=== PATIENT | female | born 1965 | race Caucasian/White ===

== ENCOUNTER 2021-08-06 18:54 | Emergency (ER) | payer BC ==
[~2021-08-06] VITALS: Ht 172.7 cm; Wt 109.0 kg
[2021-08-06] MEDS ORDERED: HYDROcodone/APAP 5/325MG 1 TAB TABLET PO ONE ×2 (19:45→20:45)
[2021-08-06] MEDS ORDERED: DIPH,PERTUSS(ACELL),TET VAC/PF 0.5 ML SYRINGE. VAX IM ONE (19:45)
[2021-08-06] MEDS ORDERED: ONDANSETRON ODT 4 MG TAB.RAPDIS. PO ONE ×2 (19:45→20:45)
--- NOTE | 2021-08-06 20:11 | RAD ---
Exam: CT maxillofacial without contrast INDICATION: Blunt trauma to nasal bone TECHNIQUE: Sequential axial images through the face obtained without IV contrast. Sagittal and fraga l reformatted images were reconstructed from the axial data and reviewed. Exposure: One or more of the following in the visualized dose reduction techniques were utilized for this examination: 1. Automated exposure control 2. Adjustment of the MA and/or KV according to patient size 3. Use of iterative of reconstructive technique Comparisons: None FINDINGS: Visualized intracranial structures are unremarkable. Globes and intraorbital contents are normal. Mild bilateral nasal bone fractures are noted. Small amount of layering fluid noted within the maxill kacie sinuses bilaterally. No significant periodontal disease is noted. IMPRESSION: Small bilateral nasal bone fractures. Hemorrhagic products noted within the nasal cavity and small am ount layering within the maxillary sinuses bilaterally. Electronically signed by: Camelia Eng MD (08/06/2021 8:08 PM) [facility]
--- NOTE | 2021-08-06 20:15 | EKG ---
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
[2021-08-06 20:40] VITALS: BP 160/69
--- NOTE | 2021-08-06 20:50 | RAD ---
Exam: Right knee 3 views INDICATION: Fall TECHNIQUE: Frontal, lateral oblique views of the right knee Comparisons: None FINDINGS: Bone mineralization is normal. No acute or healed fractures. Soft tissues are unremarkable. There is mild tricompartmental osteoarthritic change. IMPRESSION: Mild tricompartmental osteoarthritic change without underlying osseous abnormality identified. Electronically signed by: Camelia Eng MD (08/06/2021 8:47 PM) [facility]
--- NOTE | 2021-08-06 21:45 | PHYS DOC ---
Past Medical History Additional Past Medical Histor: tachycardia Past Surgical History: Appendectomy, Cholecystectomy, Lumbar Laminectomy, Other Additional Past Surgical Histo: bilat knee repair Smoking Status: Never Smoker Alcohol Use: None General Adult EDM: Chief Complaint: SYNCOPE HPI: HPI: Patient is a 55-year-old female presents to the emergency department complaining of a stumble and fall just prior to arrival to the emergency department. Patient reports that she became slightly dizzy and then stumbled over something and fell forward striking her right knee and face onto the concrete. Patient denies loss of consciousness. Patient denies feeling chest palpitations, chest pains, shortness of breath. Patient reports she has been seeing a conductor/brakeman for heart palpitations however did not feel heart palpitations during this event. Patient denies visual disturbances, denies other syncopal episodes or near syncopal episodes. Patient reports her last tetanus immunization was greater than 5 years ago. Patient denies headaches, denies lightheadedness, denies numbness or tingling to her extremities. Denies other physical complaints or physical concerns. Review of Systems: Review of Systems: 14 body systems of review of systems have been reviewed. See HPI for pertinent positives and negative responses, otherwise all other systems are negative, nonpertinent or noncontributory. Constitutional: Negative except as outlined in HPI above. Skin: Negative except as outlined in HPI above. Eyes: Negative except as outlined in HPI above. HENT: Negative except as outlined in HPI above. Respiratory: Negative except as outlined in HPI above. Cardiovascular: Negative except as outlined in HPI above. GI: Negative except as outlined in HPI above. : Negative except as outlined in HPI above. Musculoskeletal: Negative except as outlined in HPI above. Integument: Negative except as outlined in HPI above. Neurologic: Negative except as outlined in HPI above. Endocrine: Negative except as outlined in HPI above. Lymphatic: Negative except as outlined in HPI above. Psychiatric: Negative except as outlined in HPI above. Heart Score: C/O Chest Pain: No Risk Factors: Risk Factors: DM, Current or recent (<one month) smoker, HTN, HLP, family history of CAD, obesity. Risk Scores: Score 0 - 3: 2.5% MACE over next 6 weeks - Discharge Home Score 4 - 6: 20.3% MACE over next 6 weeks - Admit for Clinical Observation Score 7 - 10: 72.7% MACE over next 6 weeks - Early Invasive Strategies Current Medications: Current Medications Medications (Trade) Dose Ordered Sig/Bartolome Start Time Stop Time Status Last Admin Dose Admin Acetaminophen/ Hydrocodone Bitart (Lortab 5/325) 1 tab 1X ONCE 08/06/21 20:45 08/06/21 20:46 DC 08/06/21 20:44 1 TAB Diphtheria/ Tetanus/Acell Pertussis (ADACEL TDap SYRINGE) 0.5 ml ONCE ONCE 08/06/21 19:45 08/06/21 19:46 DC 08/06/21 19:20 0.5 ML Ondansetron HCl (Zofran Odt) 4 mg 1X ONCE 08/06/21 20:45 08/06/21 20:46 DC 08/06/21 20:44 4 MG Allergies: Allergies: Allergies Coded Allergies Type Severity Reaction Last Updated Verified codeine Allergy Intermediate n/v 08/06/21 Yes Penicillins Allergy Mild hives 08/06/21 Yes Physical Exam: PE: Constitutional: Well developed, well nourished, no acute distress, non-toxic appearance. 55-year-old female in no apparent distress. HENT: Normocephalic, abrasions and superficial lacerations to bridge of nose. No other facial injury appreciated, patient scant oozing blood from bilateral nasal turbinates, bilateral TMs within normal limits, intact, no postnasal bleeding or drip appreciated. No alfonso's sign, no raccoon eyes appreciated. Eyes: Conjunctiva normal, no discharge. Satisfactory 6 cardinal eye movements Neck: Normal range of motion, no stridor. No midline spinal tenderness Cardiovascular: No cyanosis appreciated, distal cap refill less than 2 seconds. Lungs & Thorax: Patient is in no respiratory distress, no audible adventitious lung sounds appreciated. Abdomen: Nontender, no abnormalities noted. Skin: Warm, dry, no erythema, no rash. See HENT note for focused skin examination. Back: No tenderness, no deformities. Extremities: No tenderness, no cyanosis, no clubbing, ROM intact, no edema. Except for right knee, pain to palpation of anterior patellar aspect, no bruising, no swelling, no crepitus appreciated, limited passive range of motion related to pain. Distal cap refill less than 2 seconds, 2+ dorsalis pedis pulse. No edema appreciated. Neurologic: Alert and oriented X 3, normal motor function, normal sensory function, no focal deficits noted. Psychologic: Affect normal, judgement normal, mood normal. Current Patient Data: Vital Signs: Vital Signs Date Time Temp Pulse Resp B/P (MAP) Pulse Ox O2 Delivery O2 Flow Rate FiO2 08/06/21 20:44 20 98 Room Air 08/06/21 19:01 98.0 77 144/70 (94) 98.0 EKG: EKG: EKG performed at 1925 by ED nursing staff shows a normal sinus rhythm with a heart rate of 69 bpm, KS interval 0.140, QTc interval 0.422, no acute STEMI, no ACS, no acute ischemia appreciated however there is a T wave inversion with a Q- wave in lead III. And a T wave inversion in aVF otherwise normal EKG. EKG interpreted by ED attending physician Dr. Morales. Radiology/Procedures: Radiology/Procedures: PROCEDURE: KNEE RIGHT 3V Exam: Right knee 3 views INDICATION: Fall TECHNIQUE: Frontal, lateral oblique views of the right knee Comparisons: None FINDINGS: Bone mineralization is normal. No acute or healed fractures. Soft tissues are u nremarkable. There is mild tricompartmental osteoarthritic change. IMPRESSION: Mild tricompartmental osteoarthritic change without underlying osseous abnormality identified. Electronically signed by: Camelia Eng MD (08/06/2021 8:47 PM) [facility] PROC[facility]: CT MAXILLOFACIAL WO CONTRAST Exam: CT maxillofacial without contrast INDICATION: Blunt trauma to nasal bone TECHNIQUE: Sequential axial images through the face obtained without IV contrast. Sagittal and coronal reformatted images were reconstructed from the axial data and reviewed. Exposure: One or more of the following in the visualized dose reduction techniques were utilized for this examination: 1. Automated exposure control 2. Adjustment of the MA and/or KV according to patient size 3. Use of iterative of reconstructive technique Comparisons: None FINDINGS: Visualized intracranial structures are unremarkable. Globes and intraorbital contents are normal. Mild bilateral nasal bone fractures are noted. Small amount of layering fluid noted within the maxillary sinuses bilaterally. No significant periodontal disease is noted. IMPRESSION: Small bilateral nasal bone fractures. Hemorrhagic products noted within the nasal cavity and small amount layering within the maxillary sinuses bilaterally. Electronically signed by: Camelia Eng MD (08/06/2021 8:08 PM) [facility] Course & Med Decision Making: Course & Med Decision Making Pertinent Labs and Imaging studies reviewed. (See chart for details) 55-year-old female, vital signs reviewed, presents emergency department concerning stumble and fall after becoming slightly dizzy while walking today. Patient's physical presentation is consistent with explanation of events. Will bring patient's tetanus immunization up-to-date today with Adacel Tdap, will order CT facial bones, right knee x-ray. EKG. ice packs See laceration repair note. Patient's CT imaging concerning for nasal fractures, knee x-ray nonconcerning for bony fracture. Discussed findings with patient, strict follow-up with primary care this week for consideration of follow-up with plastic surgery versus medical research associate. Patient gave verbal understanding of discharge home instructions, RICE therapy, pain medications, antinausea medication if needed, is amenable to ED discharge planning. Discussed with the patient all findings and diagnostic testing as well as the need to follow-up with their primary care provider for further evaluation and treatment or return to the ED if any new or worsening symptoms. Strict return precautions were also discussed at length, the patient voiced understanding and agreement with the discharge planning. The patient was nontoxic in appearance, in no apparent distress, and hemodynamically stable at the time of disposition. Femi Disclaimer: Femi Disclaimer: This electronic medical record was generated, in whole or in part, using a voice recognition dictation system. Laceration Repair Lac Repair Indication: Superficial nasal laceration Time: 2114 Confirmed: Patient, procedure, side, and site correct. Consent: Patient, has given verbal consent. Description/repair Procedure: The patient was placed in the appropriate position and anesthesia around the not indicated for anesthesia other than p.o. pain medications given prior to cleansing and skin glue closure. The area was then cleansed vigorously with chlorhexidine scrub and irrigated with copious amounts of normal saline. Th e laceration was closed with Dermabond skin glue. Additional nasal laceration closed with Dermabond skin glue, dressing not indicated. Complexity: Single layer. Post procedure exam: Circulation, motor, sensory examination intact, bleeding controlled. Total repaired wound length: 2 cm. Other Items: There were 2 nasal lacerations measuring approximately 1 cm each The patient tolerated the procedure well. Complications: Lacerations were closed, there were nasal bone fractures however this is a very low likelihood of an open nasal fracture. Performed by: Jed Reyes, OUTBOUND SALES AGENT-C Supervision: Dr. Morales was present for consult regarding the critical aspects of the procedure including closure and post procedure exam. Total time: 30 minutes. Departure Departure Impression: Primary Impression: Fall Qualified Codes: W19.XXXA - Unspecified fall, initial encounter Additional Impressions: Contusion of right knee Qualified Codes: S80.01XA - Contusion of right knee, initial encounter Nasal fracture Qualified Codes: S02.2XXA - Fracture of nasal bones, initial encounter for closed fracture Nasal contusion Qualified Codes: S00.33XA - Contusion of nose, initial encounter Disposition: HOME / SELF CARE / HOMELESS Condition: GOOD Referrals: MOMO SILVA MD (PCP) Patient Instructions: Contusion, Nasal Fracture Additional Instructions: You are seen today in the emergency department after you had a dizziness and fell striking your right knee and face onto the concrete. Your knee x-ray did not show any signs of fracture or bony injury. The CT scan of your facial bones did reveal nasal fractures. Your superficial lacerations of your nose were repaired with Dermabond skin glue. As we discussed please do not place o intments or lotions or other products over the area for the next 5 days, it should peel off much like superglue peels off your skin. Please follow-up with your primary care physician this week for evaluation and consideration of recommendation to see a plastic surgeon or a medical research associate. As we discussed, please continue to place ice packs on your nasal contusion area 30 minutes off with 30 minutes off while awake for the next 24 to 72 hours. An Jack wrap was placed on your right knee, you may use this for comfort and pain control. I am prescribing you a antinausea medication in the event you become nauseous, if you do not become nauseous you do not need to take this medication. I am also prescribing you pain medication please take as directed. Thank you for visiting our Emergency Department. It was a pleasure taking care of you today in the emergency department and we appreciate you trusting us with your care. If any additional problems come up don't hesitate to return to visit us. Please follow up with your primary care provider so they can plan additional care if needed and know about the problem that you had. If symptoms worsen come back to the Emergency Department. Any concerning symptoms that start such as chest pain, shortness of air, weakness or numbness on one side of the body, running high fevers or any other concerning symptoms return to the ER. EMERGENCY DEPARTMENT GENERAL DISCHARGE INSTRUCTIONS Thank you for coming to [facility] Emergency Department (ED) today and trusting us with you care. We trust that you had a positive experience in our Emergency Department. If you wish to speak to the department management, you may call the Director at [phone]. YOUR FOLLOW UP INSTRUCTIONS ARE FOLLOWS: 1. Do you have a private Doctor? If you do not have a private doctor, please ask for a resource list of physicians or clinics that may be able to assist you with follow up care. 2. The Emergency Physicain has interpreted your x-rays. The X-Ray specialist will also review them. If there is a change in the findings, you will be notified in 48 hours when at all possible. 3. A lab test or culture has been done, your results will be reviewed and you will be notified if you need a change in treatment. ADDITIONAL INSTRUCTIONS AND INFORMATION: 1. Your care today has been supervised by a physician who is specially trained in emergency care. Many problems require more than one evaluation for a complete diagnosis and treatment. We recommend that you schedule your follow up appointment as recommended to ensure complete treatment of you illness or injury. If you are unable to obtain follow up care and continue to have a problem, or if your condition worsens, we recommend that you return to the ED. 2. We are not able to safely determine your condition over the phone nor are we able to give sound medical advice over the phone. For these safety reasons, if you call for medical advice we will ask you to come to the ED for further evaluation. 3. If you have any questions regarding these discharge instructions please call the ED at [phone]. SAFETY INFORMATION: In the interest of safety, wellness, and injury prevention; we encourage you to wear your sealbelt, if you smoke; quite smoking, and we encourage family to use a protective helmet for bicycling and other sporting events that present an increased risk for head injury. IF YOUR SYMPTOMS WORSEN OR NEW SYMPTOMS DEVELOP, OR YOU HAVE CONCERNS ABOUT YOUR CONDITION; OR IF YOUR CONDITION WORSENS WHILE YOU ARE WAITING FOR YOUR FOLLOW UP APPOINTMENT; EITHER CONTACT YOUR PRIMARY CARE DOCTOR, THE PHYSICIAN WHOSE NAME AND NUMBER YOU WERE GIVEN, OR RETURN TO THE ED IMMEDIATELY. Scripts Ondansetron (ONDANSETRON ODT) 4 Mg Tab.rapdis 1 TAB PO PRN Q6-8HRS for nausea, #16 TAB 0 Refills Prov: JED DELEON APRN 08/06/21 Hydrocodone Bit/Acetaminophen (HYDROCODONE-APAP 5-325 ) 1 Tab Tablet 1 TAB PO PRN Q6HRS PRN for PAIN, #15 TAB 0 Refills Prov: JED DELEON APRN 08/06/21 JED DELEON APRN Aug 06, 2021 21:45
[2021-08-06] MEDS ORDERED: HYDR-2761 PO (22:07)
[2021-08-06] MEDS ORDERED: ONDA4TAB12 PO (22:07)
== END 2021-08-06 22:42 | disposition home or self-care (01) ==
LOC: ER 18:54
DX: S02.2XXA Fracture of nasal bones, initial encounter for closed fracture (principal); S00.33XA Contusion of nose, initial encounter; S80.01XA Contusion of right knee, initial encounter; R42 Dizziness and giddiness; W18.09XA Striking against other object with subsequent fall, initial encounter; Y93.89 Activity, other specified; Y92.89 Other specified places as the place of occurrence of the external cause; Y99.8 Other external cause status
CPT/HCPCS: 12011; 70486; 73562; 90471; 90715; 93005; 99285-25